=== PATIENT | female | born 1980 | race Caucasian/White ===

== ENCOUNTER 2016-11-29 21:22 | Emergency (ER) | payer MEDICAID ==
[~2016-11-29] VITALS: Ht 180.3 cm; Wt 69.4 kg
[~2016-11-29 21:22] MED LIST: ASPIRIN LITE C325 MG PO; AUGMENTIN 875 M1 TAB PO; CHOLESTEROL PO; CIPROFLOXACIN500 MG PO; CLINDAMYCIN HC300 MG PO; CLINDAMYCIN150 MG PO; CYCLOBENZAPRINE5 M3 PO; DIFLUCAN150 MG PO; FLAGYL500 MG PO; KEFLEX 500 MG E2 CAP PO; KEFLEX500 M1 PO; KEFLEX500 MG PO; MACROBID100 M1 PO; MEDROL DOSEPAK4 MG PO; MOTRIN800 MG PO; Motrin,Rufen800 MG PO; NAPROSYN500 MG PO; NATURE'S BLEND100 M2 PO; TRAMADOL HCL50 MG PO; ULTRAM50 MG PO; VIBRAMYCIN100 MG PO; VICODIN 500 MG-1 TAB PO; VOLTAREN50 MG PO; WYMOX500 MG PO; ZOFRAN4 MG PO; [UNRECOGNIZED DRUG - OTHER]
[2016-11-29] MEDS ORDERED: BENADRYL ALLERG25 M5 PO (22:16)
[2016-11-29] MEDS ORDERED: PREDNISONE10 MG PO (22:16)
== END 2016-11-29 22:19 | disposition home or self-care (01) ==
LOC: ED 21:22
DX: L23.7 Allergic contact dermatitis due to plants, except food (principal); F14.10 Cocaine abuse, uncomplicated; F11.10 Opioid abuse, uncomplicated; F12.10 Cannabis abuse, uncomplicated; F17.200 Nicotine dependence, unspecified, uncomplicated; Z88.6 Allergy status to analgesic agent; Z88.8 Allergy status to other drugs, medicaments and biological substances

== ENCOUNTER 2017-02-11 02:15 | Emergency (ER) | payer MEDICAID ==
[~2017-02-11] VITALS: Ht 180.3 cm; Wt 66.7 kg
[~2017-02-11 02:15] MED LIST changes: +BENADRYL ALLERG25 M5 PO; +PREDNISONE10 MG PO
[2017-02-11] MEDS ORDERED: Motrin,Rufen800 MG PO (02:59)
[2017-02-11] MEDS ORDERED: CLINDAMYCIN HC300 MG PO (02:59)
== END 2017-02-11 03:23 | disposition home or self-care (01) ==
LOC: ED 02:15
DX: K02.9 Dental caries, unspecified (principal); K04.01 Reversible pulpitis; F17.200 Nicotine dependence, unspecified, uncomplicated; F12.10 Cannabis abuse, uncomplicated; E03.9 Hypothyroidism, unspecified; F14.10 Cocaine abuse, uncomplicated; Z98.51 Tubal ligation status; Z88.8 Allergy status to other drugs, medicaments and biological substances; Z88.6 Allergy status to analgesic agent; Z88.5 Allergy status to narcotic agent

== ENCOUNTER 2017-05-19 16:51 | Emergency (ER) | payer MEDICAID ==
[~2017-05-19] VITALS: Ht 180.3 cm; Wt 70.3 kg
[2017-05-19 18:08] LABS: BASO # 0.1 10*3/uL (0.0-0.1); BASO % 0.5 % (0.0-1.0); EOS % 0.4 % (1.0-4.0); HEMATOCRIT 47.1 % (37.0-47.0); HEMOGLOBIN 15.8 g/dl (12.0-16.0); LYMPH # 3.1 10*3/uL (1.3-4.4); LYMPH % 30.9 % (27.0-41.0); MEAN CELL VOLUME 88.7 fl (81.0-99.0); MEAN CORPUSCULAR HGB 29.8 pg (27.0-31.0); MEAN CORPUSCULAR HGB CONC 33.5 g/dl (33.0-37.0); MEAN PLATELET VOLUME 9.7 fl (9.6-12.3); MONO # 0.6 10*3/uL (0.1-1.0); NEUT # 6.3 10*3/uL (2.3-7.9); NEUT % 61.9 % (47.0-73.0); PLATELET COUNT AUTOMATED 296 10*3/uL (130-400); RED BLOOD COUNT 5.31 10*6/uL (4.10-5.10); RED CELL DISTRI WIDTH 12.7 % (0-14.5); WHITE BLOOD COUNT 10.2 10*3/uL (4.8-10.8)
[2017-05-19 18:24] LABS: ALBUMIN 4.3 gm/dl (3.1-4.5); BUN 6 mg/dl (7-24); CHLORIDE 107 mmol/L (98-107); CREATININE 0.73 mg/dL (0.55-1.02); POTASSIUM 4.7 mmol/L (3.5-5.1); SGOT/AST 37 IU/L (3-35); SGPT/ALT 28 U/L (12-78); SODIUM 137 mmol/L (136-145); TOTAL PROTEIN 9.2 gm/dL (6.4-8.2)
[2017-05-19 18:26] LABS: ALKALINE PHOSPHATASE 130 U/L (45-117)
[2017-05-19 18:43] LABS: BILIRUBIN NEGATIVE (NEGATIVE); BLOOD TRACE-INTACT (NEGATIVE); CLARITY CLEAR (CLEAR); COLOR YELLOW (YELLOW); GLUCOSE NEGATIVE (NEGATIVE); KETONE NEGATIVE (NEGATIVE); LEUKO ESTERASE NEGATIVE (NEGATIVE); NITRITE NEGATIVE (NEGATIVE); PH 5.5 (5.0-9.0); SPECIFIC GRAVITY <= 1.005 (1.005-1.030); UROBILINOGEN 0.2 E.U./dl (0.2-1.0)
[2017-05-19 18:52] LABS: BACTERIA TRACE; EPITHELIAL CELLS 40-45; URINE AMPHETAMINES < 1000 (1000ng/ml); URINE BARBITURATES < 200 (200ng/ml); URINE BENZODIAZEPINES < 200 (200ng/ml); URINE CANNABINOIDS (THC) < 50 (50ng/ml); URINE COCAINE < 300 (300ng/ml); URINE METHADONE < 300 (300ng/ml); URINE OPIATES < 300 (300ng/ml); WBC 0-2 wbc/hpf (0-5)
[2017-05-19 18:54] LABS: URINE PHENCYCLIDINE < 25 (25ng/ml)
== END 2017-05-19 18:52 | disposition short-term general hospital (02) ==
LOC: ED 16:51
PROVIDERS: Physician Assistant
DX: S42.492A Other displaced fracture of lower end of left humerus, initial encounter for closed fracture (principal); F17.200 Nicotine dependence, unspecified, uncomplicated; Z88.6 Allergy status to analgesic agent; Z88.8 Allergy status to other drugs, medicaments and biological substances; W01.0XXA Fall on same level from slipping, tripping and stumbling without subsequent striking against object, initial encounter; Y93.89 Activity, other specified; Y92.89 Other specified places as the place of occurrence of the external cause; Y99.8 Other external cause status

== ENCOUNTER 2018-04-19 01:33 | Emergency (ER) | payer MEDICAID ==
[~2018-04-19] VITALS: Ht 180.3 cm; Wt 70.8 kg
[2018-04-19] MEDS ORDERED: CLINDAMYCIN150 MG PO (02:02)
[2018-04-19] MEDS ORDERED: IBU800 MG PO (02:02)
== END 2018-04-19 02:13 | disposition home or self-care (01) ==
LOC: ED 01:33
DX: K02.9 Dental caries, unspecified (principal); F17.200 Nicotine dependence, unspecified, uncomplicated; Z88.8 Allergy status to other drugs, medicaments and biological substances; Z88.6 Allergy status to analgesic agent; Z79.1 Long term (current) use of non-steroidal anti-inflammatories (NSAID); Z79.2 Long term (current) use of antibiotics; E05.90 Thyrotoxicosis, unspecified without thyrotoxic crisis or storm

== ENCOUNTER 2018-10-30 19:22 | Emergency (ER) | payer MEDICAID ==
[~2018-10-30] VITALS: Ht 180.3 cm; Wt 77.1 kg
[~2018-10-30 19:22] MED LIST changes: +IBU800 MG PO
[2018-10-30 22:55] LABS: BASO # 0.1 10*3/uL (0.0-0.1); BASO % 0.4 % (0.0-1.0); EOS # 0.1 10*3/uL (0.0-0.4); EOS % 0.6 % (1.0-4.0); HEMATOCRIT 39.1 % (37.0-47.0); HEMOGLOBIN 13.7 g/dl (12.0-16.0); LYMPH # 2.4 10*3/uL (1.3-4.4); LYMPH % 15.1 % (27.0-41.0); MEAN CELL VOLUME 91.4 fl (81.0-99.0); MONO % 6.2 % (3.0-9.0); NEUT % 77.4 % (47.0-73.0); PLATELET COUNT AUTOMATED 215 10*3/uL (130-400); RED BLOOD COUNT 4.28 10*6/uL (4.10-5.10); RED CELL DISTRI WIDTH 12.4 % (0-14.5); WHITE BLOOD COUNT 15.6 10*3/uL (4.8-10.8)
[2018-10-30 23:09] LABS: ALBUMIN 3.7 gm/dl (3.1-4.5); ALKALINE PHOSPHATASE 109 U/L (45-117); BUN 6 mg/dl (7-24); CHLORIDE 105 mmol/L (98-107); CREATININE 0.71 mg/dL (0.55-1.02); POTASSIUM 3.1 mmol/L (3.5-5.1); SGOT/AST 40 IU/L (3-35); SGPT/ALT 36 U/L (12-78); SODIUM 135 mmol/L (136-145); TOTAL PROTEIN 7.8 gm/dL (6.4-8.2)
== END 2018-10-31 03:05 | disposition short-term general hospital (02) ==
LOC: ED 19:22
PROVIDERS: Physician Assistant
DX: K12.2 Cellulitis and abscess of mouth (principal); F11.10 Opioid abuse, uncomplicated; F12.10 Cannabis abuse, uncomplicated; F14.10 Cocaine abuse, uncomplicated; F17.200 Nicotine dependence, unspecified, uncomplicated; Z88.8 Allergy status to other drugs, medicaments and biological substances; Z88.6 Allergy status to analgesic agent

== ENCOUNTER 2018-11-19 12:09 | Emergency (ER) | payer MEDICAID ==
[~2018-11-19] VITALS: Ht 180.3 cm; Wt 72.6 kg
--- NOTE | ~2018-11-19 | EKG ---
[place], [place] ELECTROCARDIOGRAM REPORT NAME: TAVARES THORNTON V UNIT #: [id number] ROOM: DOCTOR: ELENA DRAFT REPORT BIRTHDATE: [birth year] [facility] Test Date: 2018-11-19 Test Time: 13:18:43 Pat Name: TAVARES THORNTON Department: ER Room: Gender: F Digital Engineer: : [id number] Requested By: URVASHI SYLVESTER Order Number: [id number] Reading MD: Eduardo Diop MD Measurements Intervals [place] Rate: 82 P: 4 IA: 126 QRS: 56 QRSD: 91 T: 42 QT: 371 QTc: 434 Interpretive Statements Sinus rhythm Nonspecific ST T changes Electronically Signed On 11-22-2018 4:13:32 PDT by Eduardo Diop MD CM:EKGRPT:ELECTROCARDIOGRAM REPORT [id number] URVASHI LERMA DRAFT REPORT URVASHI SYLVESTER DO
[2018-11-19 13:26] LABS: BASO % 0.6 % (0.0-1.0); EOS # 0.1 10*3/uL (0.0-0.4); HEMATOCRIT 45.2 % (37.0-47.0); HEMOGLOBIN 14.9 g/dl (12.0-16.0); LYMPH # 1.5 10*3/uL (1.3-4.4); LYMPH % 29.6 % (27.0-41.0); MEAN CELL VOLUME 95.6 fl (81.0-99.0); MEAN CORPUSCULAR HGB 31.5 pg (27.0-31.0); MEAN PLATELET VOLUME 9.8 fl (9.6-12.3); MONO # 0.4 10*3/uL (0.1-1.0); MONO % 7.1 % (3.0-9.0); NEUT # 3.1 10*3/uL (2.3-7.9); NEUT % 61.5 % (47.0-73.0); PLATELET COUNT AUTOMATED 264 10*3/uL (130-400); RED BLOOD COUNT 4.73 10*6/uL (4.10-5.10); RED CELL DISTRI WIDTH 12.6 % (0-14.5); WHITE BLOOD COUNT 5.1 10*3/uL (4.8-10.8)
[2018-11-19 13:45] LABS: ALBUMIN 3.4 gm/dl (3.1-4.5); ALKALINE PHOSPHATASE 85 U/L (45-117); BUN 5 mg/dl (7-24); CHLORIDE 110 mmol/L (98-107); CREATININE 0.69 mg/dL (0.55-1.02); LIPASE 99 U/L (73-393); SGOT/AST 23 IU/L (3-35); SGPT/ALT 27 U/L (12-78); SODIUM 141 mmol/L (136-145); TOTAL PROTEIN 7.3 gm/dL (6.4-8.2)
[2018-11-19 13:46] LABS: BETA-HCG, QUANT < 1.0 mIU/mL (1-3); TROPONIN I < 0.015 ng/ml (<0.045)
[2018-11-19 13:47] LABS: POTASSIUM 4.2 mmol/L (3.5-5.1)
[2018-11-19] MEDS ORDERED: VALTREX1000 MG PO (14:15)
[2018-11-19] MEDS ORDERED: IBUPROFEN600 MG PO (14:15)
== END 2018-11-19 14:24 | disposition home or self-care (01) ==
LOC: ED 12:09
PROVIDERS: Emergency Medicine
DX: B02.9 Zoster without complications (principal); E05.90 Thyrotoxicosis, unspecified without thyrotoxic crisis or storm; F17.200 Nicotine dependence, unspecified, uncomplicated; Z88.8 Allergy status to other drugs, medicaments and biological substances; Z88.6 Allergy status to analgesic agent

== ENCOUNTER 2020-11-17 18:22 | Inpatient (IN) | payer OTHER ==
[~2020-11-17] VITALS: Ht 182.8 cm; Wt 74.6 kg
[2020-11-17 00:50] VITALS: BP 134/84
[~2020-11-17 18:22] MED LIST changes: +IBUPROFEN600 MG PO; +VALTREX1000 MG PO
[2020-11-17 18:31] VITALS: BP 134/88
[2020-11-17 20:00] VITALS: BP 134/84
[2020-11-17 21:16] LABS: BASO % 0.5 % (0.0-1.0); EOS % 0.4 % (1.0-4.0); HEMATOCRIT 44.9 % (37.0-47.0); LYMPH # 3.5 10*3/uL (1.3-4.4); LYMPH % 42.6 % (27.0-41.0); MEAN CORPUSCULAR HGB 30.7 pg (27.0-31.0); MEAN CORPUSCULAR HGB CONC 33.4 g/dl (33.0-37.0); MEAN PLATELET VOLUME 9.8 fl (9.6-12.3); MONO # 0.5 10*3/uL (0.1-1.0); MONO % 6.5 % (3.0-9.0); NEUT # 4.1 10*3/uL (2.3-7.9); NEUT % 49.8 % (47.0-73.0); PLATELET COUNT AUTOMATED 273 10*3/uL (130-400); RED BLOOD COUNT 4.88 10*6/uL (4.10-5.10); RED CELL DISTRI WIDTH 12.5 % (0-14.5); WHITE BLOOD COUNT 8.3 10*3/uL (4.8-10.8)
[2020-11-17 21:30] LABS: ALBUMIN 3.4 gm/dl (3.1-4.5); ALKALINE PHOSPHATASE 129 U/L (45-117); BUN 9 mg/dl (7-24); CHLORIDE 107 mmol/L (98-107); CREATININE 0.78 mg/dL (0.55-1.02); POTASSIUM 3.6 mmol/L (3.5-5.1); SGOT/AST 16 IU/L (3-35); SGPT/ALT 32 U/L (12-78); SODIUM 136 mmol/L (136-145); TOTAL PROTEIN 7.3 gm/dL (6.4-8.2)
[2020-11-17 21:38] LABS: ETHYL ALCOHOL < 3.0 mg/dl (<3); TROPONIN I < 0.015 ng/ml (<0.045)
[2020-11-17 21:47] LABS: BILIRUBIN Negative (Negative); BLOOD Negative (Negative); CLARITY Clear (Clear); COLOR Yellow (Yellow); GLUCOSE Negative (Negative); KETONE Negative (Negative); LEUKO ESTERASE Negative (Negative); NITRITE Negative (Negative)
[2020-11-17 21:53] LABS: BACTERIA TRACE; RBC 0-2 rbc/hpf (0-2); WBC 0-2 wbc/hpf (0-5)
[2020-11-17 21:55] LABS: URINE AMPHETAMINES > 1000 (1000ng/ml); URINE BARBITURATES < 200 (200ng/ml); URINE BENZODIAZEPINES < 200 (200ng/ml); URINE CANNABINOIDS (THC) < 50 (50ng/ml); URINE COCAINE < 300 (300ng/ml); URINE METHADONE < 300 (300ng/ml); URINE OPIATES < 300 (300ng/ml); URINE PHENCYCLIDINE < 25 (25ng/ml)
[2020-11-17 23:25] VITALS: BP 128/80
[2020-11-17] MEDS ORDERED: BUSPIRONE HCL15 MG PO (23:28)
[2020-11-17] MEDS ORDERED: PROZAC10 MG PO (23:28)
[2020-11-18] VITALS (9 sets, daily range): BP systolic 109–144; BP diastolic 71–89
[2020-11-18 07:03] LABS: BASO # 0.1 10*3/uL (0.0-0.1); BASO % 0.8 % (0.0-1.0); EOS # 0.1 10*3/uL (0.0-0.4); EOS % 0.9 % (1.0-4.0); HEMATOCRIT 44.9 % (37.0-47.0); LYMPH # 3.4 10*3/uL (1.3-4.4); LYMPH % 45.6 % (27.0-41.0); MEAN CORPUSCULAR HGB 30.5 pg (27.0-31.0); MEAN CORPUSCULAR HGB CONC 33.9 g/dl (33.0-37.0); MEAN PLATELET VOLUME 9.6 fl (9.6-12.3); MONO # 0.6 10*3/uL (0.1-1.0); MONO % 8.2 % (3.0-9.0); NEUT # 3.3 10*3/uL (2.3-7.9); NEUT % 44.2 % (47.0-73.0); PLATELET COUNT AUTOMATED 281 10*3/uL (130-400); RED BLOOD COUNT 4.99 10*6/uL (4.10-5.10); RED CELL DISTRI WIDTH 12.7 % (0-14.5); WHITE BLOOD COUNT 7.5 10*3/uL (4.8-10.8)
[2020-11-18 07:22] LABS: ALBUMIN 3.3 gm/dl (3.1-4.5); BUN 10 mg/dl (7-24); CHLORIDE 109 mmol/L (98-107); CREATININE 0.78 mg/dL (0.55-1.02); POTASSIUM 4.2 mmol/L (3.5-5.1); SGOT/AST 16 IU/L (3-35); SGPT/ALT 31 U/L (12-78); SODIUM 137 mmol/L (136-145)
[2020-11-18 07:30] LABS: ALKALINE PHOSPHATASE 124 U/L (45-117); FREE T4 1.29 ng/dl (0.76-1.46); THYROID STIM HORMONE (HS) 0.307 uIU/ml (0.358-4.75); TOTAL PROTEIN 7.4 gm/dL (6.4-8.2)
[2020-11-19 06:40] LABS: HEMATOCRIT 40.1 % (37.0-47.0); MEAN CELL VOLUME 88.9 fl (81.0-99.0); MEAN CORPUSCULAR HGB 30.6 pg (27.0-31.0); MEAN CORPUSCULAR HGB CONC 34.4 g/dl (33.0-37.0); PLATELET COUNT AUTOMATED 274 10*3/uL (130-400); RED BLOOD COUNT 4.51 10*6/uL (4.10-5.10); RED CELL DISTRI WIDTH 12.4 % (0-14.5)
[2020-11-19 06:51] LABS: BUN 8 mg/dl (7-24); CHLORIDE 110 mmol/L (98-107); CREATININE 0.79 mg/dL (0.55-1.02); POTASSIUM 4.1 mmol/L (3.5-5.1); SODIUM 138 mmol/L (136-145)
[2020-11-19 07:15] LABS: TOTAL CELLS COUNTED 100 #CELLS
[2020-11-19 07:16] LABS: PLATELET SUFFICIENCY NORMAL (NORMAL)
[2020-11-19 08:00] VITALS: BP 120/75
[2020-11-19 12:00] VITALS: BP 112/72
[2020-11-19 16:00] VITALS: BP 111/65
[2020-11-19 20:00] VITALS: BP 124/71
[2020-11-20] VITALS: BP 124/68
[2020-11-20 08:00] VITALS: BP 97/57
[2020-11-20 12:00] VITALS: BP 101/58
[2020-11-20 16:00] VITALS: BP 103/63
[2020-11-20 20:00] VITALS: BP 118/74
[2020-11-21] VITALS: BP 111/47
[2020-11-21 08:00] VITALS: BP 106/62
[2020-11-21] MEDS ORDERED: OLANZAPINE5 MG PO (09:50)
[2020-11-21] MEDS ORDERED: PROZAC10 MG PO (09:50)
[2020-11-21] MEDS ORDERED: BUSPIRONE HCL15 MG PO (09:50)
[2020-11-21] MEDS ORDERED: DULCOLAX STOOL100 M1 PO (09:50)
== END 2020-11-21 10:08 | disposition home or self-care (01) | DRG 710 ==
LOC: ED 18:22 → EDHOLD 23:12 → 5E 23:12
PROVIDERS: Family Medicine; Internal Medicine; Nurse Practitioner; ADMIT Internal Medicine; ATTEND Internal Medicine
PROC: 0FT44ZZ Resection of Gallbladder, Percutaneous Endoscopic Approach (ICD-10-PCS; principal; 2020-11-18)
DX: A41.9 Sepsis, unspecified organism (principal); K80.00 Calculus of gallbladder with acute cholecystitis without obstruction; B19.20 Unspecified viral hepatitis C without hepatic coma; F15.10 Other stimulant abuse, uncomplicated; J96.00 Acute respiratory failure, unspecified whether with hypoxia or hypercapnia; E83.41 Hypermagnesemia; F25.0 Schizoaffective disorder, bipolar type; F41.9 Anxiety disorder, unspecified; F31.9 Bipolar disorder, unspecified; D27.1 Benign neoplasm of left ovary; F10.239 Alcohol dependence with withdrawal, unspecified; F17.210 Nicotine dependence, cigarettes, uncomplicated; I10 Essential (primary) hypertension; Z88.8 Allergy status to other drugs, medicaments and biological substances; Z88.6 Allergy status to analgesic agent; Z83.79 Family history of other diseases of the digestive system; Z98.51 Tubal ligation status; Z79.899 Other long term (current) drug therapy

== ENCOUNTER 2021-01-29 08:50 | Emergency (ER) | payer OTHER ==
[~2021-01-29] VITALS: Wt 80.3 kg
[~2021-01-29 08:50] MED LIST changes: +BUSPIRONE HCL15 MG PO; +DULCOLAX STOOL100 M1 PO; +OLANZAPINE5 MG PO; +PROZAC10 MG PO
[2021-01-29 10:02] LABS: BILIRUBIN Negative (Negative); BLOOD Negative (Negative); CLARITY Clear (Clear); COLOR Yellow (Yellow); GLUCOSE Negative (Negative); KETONE Negative (Negative); LEUKO ESTERASE Trace (Negative); NITRITE Negative (Negative); SPECIFIC GRAVITY <= 1.005 (1.001-1.030)
[2021-01-29 10:03] LABS: HEMATOCRIT 42.8 % (37.0-47.0); MEAN CELL VOLUME 92.4 fl (81.0-99.0); MEAN CORPUSCULAR HGB CONC 32.5 g/dl (33.0-37.0); MEAN PLATELET VOLUME 10.1 fl (9.6-12.3); PLATELET COUNT AUTOMATED 224 10*3/uL (130-400); RED BLOOD COUNT 4.63 10*6/uL (4.10-5.10); RED CELL DISTRI WIDTH 12.2 % (0-14.5); WHITE BLOOD COUNT 4.1 10*3/uL (4.8-10.8)
[2021-01-29 10:08] LABS: URINE AMPHETAMINES < 1000 (1000ng/ml); URINE BARBITURATES < 200 (200ng/ml); URINE BENZODIAZEPINES < 200 (200ng/ml); URINE CANNABINOIDS (THC) < 50 (50ng/ml); URINE COCAINE < 300 (300ng/ml); URINE METHADONE < 300 (300ng/ml); URINE OPIATES < 300 (300ng/ml)
[2021-01-29 10:12] LABS: BACTERIA TRACE; URINE PHENCYCLIDINE < 25 (25ng/ml)
[2021-01-29 10:19] LABS: ALBUMIN 3.5 gm/dl (3.1-4.5); ALKALINE PHOSPHATASE 90 U/L (45-117); BUN 5 mg/dl (7-24); CHLORIDE 113 mmol/L (98-107); CREATININE 0.63 mg/dL (0.55-1.02); POTASSIUM 3.3 mmol/L (3.5-5.1); SGOT/AST 49 IU/L (3-35); SGPT/ALT 57 U/L (12-78); SODIUM 139 mmol/L (136-145); TOTAL PROTEIN 6.9 gm/dL (6.4-8.2)
[2021-01-29 10:24] LABS: BETA-HCG, QUANT < 1.0 mIU/mL (1-3)
[2021-01-29 10:35] LABS: ATYPICAL LYMPHS 1 % (0-0); PLATELET SUFFICIENCY NORMAL (NORMAL); TOTAL CELLS COUNTED 100 #CELLS
== END 2021-01-29 11:18 | disposition home or self-care (01) ==
LOC: ED 08:50
PROVIDERS: Internal Medicine
DX: M79.641 Pain in right hand (principal); M79.642 Pain in left hand; R60.0 Localized edema; R20.0 Anesthesia of skin; R53.83 Other fatigue; F17.200 Nicotine dependence, unspecified, uncomplicated; Z88.8 Allergy status to other drugs, medicaments and biological substances; Z88.6 Allergy status to analgesic agent; Z79.899 Other long term (current) drug therapy; Z98.51 Tubal ligation status

== ENCOUNTER 2021-02-06 09:48 | Emergency (ER) | payer OTHER ==
[~2021-02-06] VITALS: Wt 80.3 kg
[2021-02-06 12:07] LABS: BASO % 0.4 % (0.0-1.0); EOS # 0.2 10*3/uL (0.0-0.4); EOS % 2.1 % (1.0-4.0); HEMATOCRIT 46.6 % (37.0-47.0); LYMPH # 3.3 10*3/uL (1.3-4.4); LYMPH % 36.1 % (27.0-41.0); MEAN CELL VOLUME 93.4 fl (81.0-99.0); MEAN CORPUSCULAR HGB 30.5 pg (27.0-31.0); MEAN CORPUSCULAR HGB CONC 32.6 g/dl (33.0-37.0); MEAN PLATELET VOLUME 9.6 fl (9.6-12.3); MONO # 0.7 10*3/uL (0.1-1.0); MONO % 8.1 % (3.0-9.0); NEUT # 4.9 10*3/uL (2.3-7.9); NEUT % 53.1 % (47.0-73.0); PLATELET COUNT AUTOMATED 266 10*3/uL (130-400); RED BLOOD COUNT 4.99 10*6/uL (4.10-5.10); RED CELL DISTRI WIDTH 11.9 % (0-14.5); WHITE BLOOD COUNT 9.2 10*3/uL (4.8-10.8)
[2021-02-06 12:34] LABS: ALBUMIN 3.4 gm/dl (3.1-4.5); BUN 4 mg/dl (7-24); CHLORIDE 110 mmol/L (98-107); CREATININE 0.63 mg/dL (0.55-1.02); POTASSIUM 3.9 mmol/L (3.5-5.1); SGOT/AST 26 IU/L (3-35); SGPT/ALT 35 U/L (12-78); SODIUM 138 mmol/L (136-145); TOTAL PROTEIN 7.1 gm/dL (6.4-8.2)
[2021-02-06 12:35] LABS: ALKALINE PHOSPHATASE 105 U/L (45-117)
[2021-02-06] MEDS ORDERED: DOXYCYCLINE100 M3 PO (12:46)
== END 2021-02-06 12:50 | disposition home or self-care (01) ==
LOC: ED 09:48
PROVIDERS: Internal Medicine
DX: L02.811 Cutaneous abscess of head [any part, except face] (principal); Z88.8 Allergy status to other drugs, medicaments and biological substances; Z88.6 Allergy status to analgesic agent; Z79.899 Other long term (current) drug therapy; Z98.51 Tubal ligation status

== ENCOUNTER → 2021-04-21 | Outpatient (CLI) | payer OTHER ==
[~2021-04-21] MED LIST changes: +DOXYCYCLINE100 M3 PO
[2021-04-21 11:00] LABS: BASO # 0.1 10*3/uL (0.0-0.1); BASO % 1.2 % (0.0-1.0); EOS # 0.1 10*3/uL (0.0-0.4); EOS % 2.3 % (1.0-4.0); HEMATOCRIT 49.7 % (37.0-47.0); LYMPH # 2.4 10*3/uL (1.3-4.4); MEAN CELL VOLUME 90.5 fl (81.0-99.0); MEAN CORPUSCULAR HGB 29.1 pg (27.0-31.0); MEAN CORPUSCULAR HGB CONC 32.2 g/dl (33.0-37.0); MEAN PLATELET VOLUME 9.9 fl (9.6-12.3); MONO # 0.3 10*3/uL (0.1-1.0); MONO % 6.5 % (3.0-9.0); NEUT # 1.4 10*3/uL (2.3-7.9); NEUT % 32.8 % (47.0-73.0); PLATELET COUNT AUTOMATED 266 10*3/uL (130-400); RED BLOOD COUNT 5.49 10*6/uL (4.10-5.10); RED CELL DISTRI WIDTH 12.9 % (0-14.5); WHITE BLOOD COUNT 4.3 10*3/uL (4.8-10.8)
[2021-04-21 11:54] LABS: ALKALINE PHOSPHATASE 147 U/L (45-117); BUN 13 mg/dl (7-24); CHLORIDE 111 mmol/L (98-107); CHOLESTEROL 180 mg/dL (<200); CREATININE 0.88 mg/dL (0.55-1.02); LDL CHOLESTEROL 101 mg/dL (9-159); SGOT/AST 64 IU/L (3-35); SGPT/ALT 88 U/L (12-78); SODIUM 140 mmol/L (136-145); THYROXINE (T4) TOTAL 12.9 ug/dl (4.8-13.9); TOTAL PROTEIN 8.4 gm/dL (6.4-8.2); TRIGLYCERIDES 89 mg/dl (<150)
[2021-04-22 12:07] LABS: HEP B CORE AB, IGM Negative (Negative); HEPATITIS B SURFACE AG Negative (Negative)
[2021-04-23 09:07] LABS: THYROTROPIN RECEPTOR AB <1.10 IU/L (0.00-1.75)
[2021-04-23 09:56] LABS: HEPATITIS C VIRUS ANTIBODY >11.0 s/co (0.0-0.9)
== END | disposition home or self-care (01) ==
LOC: US 10:00 → LAB 10:16
PROVIDERS: ATTEND Nurse Practitioner Family
DX: E04.1 Nontoxic single thyroid nodule (principal); Z13.220 Encounter for screening for lipoid disorders; Z13.228 Encounter for screening for other metabolic disorders; F19.21 Other psychoactive substance dependence, in remission; R20.0 Anesthesia of skin; R94.5 Abnormal results of liver function studies; Z13.1 Encounter for screening for diabetes mellitus; Z90.49 Acquired absence of other specified parts of digestive tract

== ENCOUNTER 2022-03-27 19:23 | Emergency (ER) | payer OTHER ==
[~2022-03-27] VITALS: Ht 172.7 cm; Wt 77.1 kg
== END 2022-03-28 00:06 | disposition home or self-care (01) ==
LOC: ED 19:23
DX: S60.512A Abrasion of left hand, initial encounter (principal); S60.511A Abrasion of right hand, initial encounter; T50.7X1A Poisoning by analeptics and opioid receptor antagonists, accidental (unintentional), initial encounter; F17.200 Nicotine dependence, unspecified, uncomplicated; F15.10 Other stimulant abuse, uncomplicated; Z79.899 Other long term (current) drug therapy; X58.XXXA Exposure to other specified factors, initial encounter; Y93.89 Activity, other specified; Y92.89 Other specified places as the place of occurrence of the external cause; Y99.9 Unspecified external cause status

== ENCOUNTER 2023-02-16 03:59 | Emergency (ER) | payer OTHER ==
[~2023-02-16] VITALS: Ht 180.3 cm; Wt 77.1 kg
[2023-02-16] MEDS ORDERED: SEPTDS PO (04:23)
[2023-02-16] MEDS ORDERED: PREDNISONE50 MG PO (04:23)
== END 2023-02-16 06:33 | disposition home or self-care (01) ==
LOC: ED 03:59
DX: L23.7 Allergic contact dermatitis due to plants, except food (principal); L08.9 Local infection of the skin and subcutaneous tissue, unspecified; F41.9 Anxiety disorder, unspecified; F31.9 Bipolar disorder, unspecified; F17.200 Nicotine dependence, unspecified, uncomplicated; Z88.8 Allergy status to other drugs, medicaments and biological substances; Z88.6 Allergy status to analgesic agent; Z79.2 Long term (current) use of antibiotics; Z79.899 Other long term (current) drug therapy; Z98.51 Tubal ligation status

== ENCOUNTER 2025-03-31 17:32 | Emergency (ER) | payer OTHER ==
[~2025-03-31] VITALS: Ht 180.3 cm; Wt 68.0 kg
[~2025-03-31 17:32] MED LIST changes: +PREDNISONE50 MG PO; +SEPTDS PO
[2025-03-31 19:01] LABS: BASO # 0.1 10*3/uL (0.0-0.1); BASO % 1.2 % (0.0-1.0); EOS # 0.0 10*3/uL (0.0-0.4); EOS % 0.5 % (1.0-4.0); MEAN CELL VOLUME 88.1 fl (81.0-99.0); MEAN CORPUSCULAR HGB 28.4 pg (27.0-31.0); MEAN PLATELET VOLUME 9.6 fl (9.6-12.3); MONO # 0.4 10*3/uL (0.1-1.0); MONO % 8.7 % (3.0-9.0); NEUT # 1.8 10*3/uL (2.3-7.9); NEUT % 43.9 % (47.0-73.0); NUCLEATED RED BLOOD CELL 0.0 % (0.0-0.0); NUCLEATED RED BLOOD CELL 0.0 10*3/uL (0.0-0.0); PLATELET COUNT AUTOMATED 216 10*3/uL (130-400); RED CELL DISTRI WIDTH 12.2 % (0-14.5)
[2025-03-31 19:20] LABS: BUN 9 mg/dl (9-23); SGPT/ALT 14 U/L (5-49)
[2025-03-31 19:57] LABS: BILIRUBIN Negative (Negative); BLOOD Negative (Negative); CLARITY Cloudy (Clear); COLOR Yellow (Yellow); KETONE Negative (Negative); LEUKO ESTERASE 2+ (Negative); NITRITE Positive (Negative); PH 6.5 (4.5-8.0); SPECIFIC GRAVITY 1.015 (1.001-1.030); UROBILINOGEN 1.0 E.U./dl (0.0-1.0)
[2025-03-31 20:06] LABS: BACTERIA 4+; WBC 31-40 wbc/hpf (0-5)
[2025-03-31 20:55] LABS: URINE AMPHETAMINES Positive (1000ng/ml); URINE BARBITURATES Negative (200ng/ml); URINE BENZODIAZEPINES Negative (200ng/ml); URINE CANNABINOIDS (THC) Negative (50ng/ml); URINE COCAINE Negative (300ng/ml); URINE METHADONE Negative (300ng/ml); URINE OPIATES Negative (300ng/ml); URINE PHENCYCLIDINE Negative (25ng/ml)
[2025-03-31] MEDS ORDERED: Lidocaine Hydrochloride 1% 2 ML VIAL IM ONE (20:55)
[2025-03-31] MEDS ORDERED: CIPRO500 MG PO (21:58)
== END 2025-03-31 22:19 | disposition home or self-care (01) ==
LOC: ED 17:32
PROVIDERS: Nurse Practitioner
DX: N39.0 Urinary tract infection, site not specified (principal); R42 Dizziness and giddiness; F17.200 Nicotine dependence, unspecified, uncomplicated; Z88.8 Allergy status to other drugs, medicaments and biological substances; Z88.6 Allergy status to analgesic agent; Z79.899 Other long term (current) drug therapy